=== PATIENT | male | born 1965 | race Caucasian/White ===

== ENCOUNTER → 2019-11-16 15:59 | Outpatient (BNVA) | payer MEDICARE, MEDICAID, SELFPAY | PROVIDERS: Family Provider Nurse Practitioner; PCP Nurse Practitioner; Visit Provider Nurse Practitioner | DX: R50.9 Fever, unspecified (principal); J44.9 Chronic obstructive pulmonary disease, unspecified; E03.9 Hypothyroidism, unspecified; I10 Essential (primary) hypertension; E78.2 Mixed hyperlipidemia; M43.02 Spondylolysis, cervical region; Z87.891 Personal history of nicotine dependence; F31.9 Bipolar disorder, unspecified | CPT/HCPCS: 87400 ==

== ENCOUNTER → 2019-11-17 10:58 | Outpatient (BNVA) | payer MEDICARE, MEDICAID, SELFPAY | PROVIDERS: Family Provider Nurse Practitioner; PCP Nurse Practitioner; Visit Provider Nurse Practitioner | DX: R50.9 Fever, unspecified (principal) | CPT/HCPCS: 87400 ==

== ENCOUNTER → 2020-01-08 10:57 | Outpatient (BNVA) | payer MEDICARE, MEDICAID, SELFPAY | PROVIDERS: Family Provider Nurse Practitioner; PCP Nurse Practitioner; Visit Provider Nurse Practitioner | DX: M17.0 Bilateral primary osteoarthritis of knee (principal); I10 Essential (primary) hypertension; E03.9 Hypothyroidism, unspecified; F31.9 Bipolar disorder, unspecified; E78.2 Mixed hyperlipidemia; M43.02 Spondylolysis, cervical region; J44.9 Chronic obstructive pulmonary disease, unspecified; Z87.891 Personal history of nicotine dependence | CPT/HCPCS: 80053; 80061; 81000; 84439; 84443; 84481 ==

== ENCOUNTER → 2020-04-11 16:07 | Outpatient (BNVA) | payer MEDICARE, MEDICAID, SELFPAY | PROVIDERS: Family Provider Nurse Practitioner; PCP Nurse Practitioner; Visit Provider Nurse Practitioner | DX: R07.9 Chest pain, unspecified (principal); J44.9 Chronic obstructive pulmonary disease, unspecified; F31.9 Bipolar disorder, unspecified; E03.9 Hypothyroidism, unspecified; I10 Essential (primary) hypertension; E78.2 Mixed hyperlipidemia; M43.02 Spondylolysis, cervical region; G47.00 Insomnia, unspecified | CPT/HCPCS: 80053; 80061; 84443; 84484; 85025 ==

== ENCOUNTER → 2020-06-03 11:04 | Outpatient (BNVA) | payer MEDICARE, MEDICAID, SELFPAY | PROVIDERS: Family Provider Nurse Practitioner; PCP Nurse Practitioner; Visit Provider Nurse Practitioner Family | DX: Z11.59 Encounter for screening for other viral diseases (principal) | CPT/HCPCS: 87635 ==

== ENCOUNTER → 2020-10-08 09:38 | Outpatient (BNVA) | payer MEDICARE, MEDICAID, SELFPAY | PROVIDERS: Family Provider Nurse Practitioner; PCP Nurse Practitioner; Visit Provider Nurse Practitioner | DX: J44.9 Chronic obstructive pulmonary disease, unspecified (principal); F31.9 Bipolar disorder, unspecified; E03.9 Hypothyroidism, unspecified; I10 Essential (primary) hypertension; G47.00 Insomnia, unspecified; E78.2 Mixed hyperlipidemia; M43.02 Spondylolysis, cervical region; J30.89 Other allergic rhinitis; Z87.891 Personal history of nicotine dependence | CPT/HCPCS: 80053; 80061; 84443 ==

== ENCOUNTER → 2021-01-06 10:32 | Outpatient (BNVA) | payer MEDICARE, MEDICAID, BC, SELFPAY | PROVIDERS: Family Provider Nurse Practitioner; PCP Nurse Practitioner; Visit Provider Nurse Practitioner | DX: I10 Essential (primary) hypertension (principal); E03.9 Hypothyroidism, unspecified; J44.9 Chronic obstructive pulmonary disease, unspecified; J30.89 Other allergic rhinitis; R07.9 Chest pain, unspecified; F31.9 Bipolar disorder, unspecified; R56.9 Unspecified convulsions; G47.00 Insomnia, unspecified; E78.2 Mixed hyperlipidemia; M43.02 Spondylolysis, cervical region; Z87.891 Personal history of nicotine dependence | CPT/HCPCS: 80053; 81003; 84443; 85025 ==

== ENCOUNTER 2021-04-10 07:53 | Outpatient (CLI) | payer MEDICARE, MEDICAID, SELFPAY ==
[2021-04-10 08:48] VITALS: BMI 33.0
--- NOTE | 2021-04-10 08:48 | ECG_ITS ---
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 The perfusion scan will be documented separately. DATA: Baseline heart rate was 74 beats per minute. Baseline blood pressure was 111/84 millimeters of mercury. Target heart rate was 165. Maximum heart rate achieved was 134. which was 81 % of the predicted target heart rate. Maximum blood pressure was 130/80 millimeters of mercury. The reason for ending the test was completion of the protocol. The patient did not experience any symptoms. ELECTROCARDIOGRAM: BASELINE: Sinus rhythm. Normal axis. Otherwise, no ST-T changes suggestive of ischemia noted. No arrhythmia noted. EXERCISE: After Lexiscan injection, no ST-T changes suggestive of ischemic noted. No arrhythmia noted. 1. EKG not suggestive of ischemia 2. Lexiscan injection unremarkable. 3. Perfusion scan will be documented separately. Electronically Signed On 04-10-2021 21:21:31 CDT by MATEO HYDE [id number]
--- NOTE | 2021-04-10 08:49 | NMCV_ITS ---
NM rupal perf SPECT r/s* [id number] Jewel Mejia Age: 55 Gender: M : 1965 Exam Date: 04/10/2021 09:37 Ordering Phys: Doe Hyde MD ([email or web address]) Technologist: FAISAL Thomas Exam Location: [facility] Indications: SHORTNESS OF BREATH STRESS TEST Please [facility] IMAGE PROTOCOL Rest/Stress 1 Lexiscan Day Radiopharmaceutical Dose (mCi) Administration Site Administered by Rest: Tc-99m 10.7 IV FAISAL Alas Sestamibi Stress:Tc-99m 32.0 IV FAISAL Thomas Sestamidaiana Rest: 10-Apr-2021 60 Discovery 630 Stress: 10-Apr-2021 30 Discovery 630 0.4mg Lexiscan. Images obtained in supine and prone position. SPECT RESULTS Technical Quality: Excellent Raw Data Analysis: Normal Image Corrections: No attenuation or motion correction applied Summed Stress Score: 0 Summed Rest Score: 0 Summed Difference Score: 0 PERFUSION FINDINGS Medium-sized area of patchy decreased tracer uptake noted basal to distal inferior wall suggestive of old myocardial infarction versus scarring. FUNCTIONAL RESULTS (calculated via Gated SPECT) Stress Image LV EF (%): 67 Stress EDV (mL):125 TID: 0.9 Stress ESV (mL):41 Rest Image LV EF (%): 67 FUNCTIONAL FINDINGS: There is normal left ventricular systolic function. IMPRESSIONS Medium-sized area of fixed perfusion defect noted in basal distal inferior wall suggestive of old myocardial infarction versus scarring. No ischemia detected on this study. EKG segment will be documented separately. Doe Hyde MD (Electronically Signed) Final Date: 10 April 2021 18:50 S
[2021-04-10] MEDS: regadenoson 0.4 Mg/5 ml Syringe IVP (11:23)
[2021-04-10 11:41] VITALS: BP 111/73; PULSE 83
== END 2021-04-10 07:54 | disposition home or self-care (01) ==
PROVIDERS: PCP Nurse Practitioner; Visit Provider Internal Medicine Cardiovascular Disease
DX: R06.02 Shortness of breath (principal)
CPT/HCPCS: 78452; 93017; A9500; J2785

== ENCOUNTER → 2021-04-23 11:28 | Outpatient (BNVA) | payer MEDICARE, BC, MEDICAID, SELFPAY | PROVIDERS: PCP Nurse Practitioner; Visit Provider Nurse Practitioner | DX: Z20.822 Contact with and (suspected) exposure to COVID-19 (principal) | CPT/HCPCS: 87635 ==

== ENCOUNTER → 2021-11-20 14:27 | Outpatient (BNVA) | payer MEDICARE, MEDICAID, SELFPAY | PROVIDERS: PCP Nurse Practitioner; Visit Provider Nurse Practitioner | DX: J44.9 Chronic obstructive pulmonary disease, unspecified (principal); J30.89 Other allergic rhinitis; F41.9 Anxiety disorder, unspecified; I10 Essential (primary) hypertension; E03.9 Hypothyroidism, unspecified; R56.9 Unspecified convulsions; E78.2 Mixed hyperlipidemia; M43.02 Spondylolysis, cervical region; G47.00 Insomnia, unspecified; Z12.5 Encounter for screening for malignant neoplasm of prostate | CPT/HCPCS: 80053; 80061; 80183; 81003; 84443; G0103 ==

== ENCOUNTER → 2022-05-05 09:29 | Outpatient (BNVA) | payer MEDICARE, MEDICAID, SELFPAY | PROVIDERS: PCP Nurse Practitioner; Visit Provider Nurse Practitioner | DX: M17.0 Bilateral primary osteoarthritis of knee (principal); E55.9 Vitamin D deficiency, unspecified; E03.9 Hypothyroidism, unspecified; Z87.891 Personal history of nicotine dependence; Z82.49 Family history of ischemic heart disease and other diseases of the circulatory system; J44.9 Chronic obstructive pulmonary disease, unspecified; J30.89 Other allergic rhinitis; F41.9 Anxiety disorder, unspecified; I10 Essential (primary) hypertension; K59.01 Slow transit constipation; R56.9 Unspecified convulsions; E78.2 Mixed hyperlipidemia; M43.02 Spondylolysis, cervical region; G47.00 Insomnia, unspecified | CPT/HCPCS: 80053; 80061; 82306; 82607; 84443; 85025 ==

== ENCOUNTER → 2022-05-06 10:03 | Outpatient (BNVA) | payer MEDICARE, MEDICAID, SELFPAY | PROVIDERS: PCP Nurse Practitioner; Visit Provider Nurse Practitioner | DX: M17.0 Bilateral primary osteoarthritis of knee (principal); J44.9 Chronic obstructive pulmonary disease, unspecified; Z82.49 Family history of ischemic heart disease and other diseases of the circulatory system; Z87.891 Personal history of nicotine dependence | CPT/HCPCS: 71046; 73562 ==

== ENCOUNTER → 2022-05-26 08:24 | Outpatient (BNVA) | payer MEDICARE, MEDICAID, SELFPAY | PROVIDERS: PCP Nurse Practitioner; Visit Provider Surgery | DX: Z12.11 Encounter for screening for malignant neoplasm of colon (principal) | CPT/HCPCS: 99024; 99213 ==

== ENCOUNTER → 2022-10-29 11:27 | Outpatient (BNVA) | payer MEDICARE, MEDICAID, SELFPAY | PROVIDERS: PCP Nurse Practitioner; Visit Provider Nurse Practitioner | DX: I10 Essential (primary) hypertension (principal); Z86.19 Personal history of other infectious and parasitic diseases | CPT/HCPCS: 80053; 80061; 85025; 87522 ==

== ENCOUNTER 2023-03-03 10:09 | Outpatient (CLI) | payer MEDICARE, MEDICAID, SELFPAY ==
--- NOTE | 2023-03-03 10:30 | USCV_ITS ---
Jewel Mejia Age: 57 Gender: M : 1965 Exam Date: 03/03/2023 10:20 Ordering Phys: Zachary Van Technologist: CT [place] [facility] [place]: PVD Risk Factors: Previous Vascular Surgery: RIGHT LEFT BP: 145.0 / 76.00 BP: 150.0/ 80.00 0 0 Waveform Velocity (cm/s) Velocity (cm/s) Waveform Triphasic 105.6 Iliac Prox 164.3 Triphasic Triphasic 112.7 Iliac Mid 130.5 Triphasic Triphasic 116.8 Iliac Distal 89.3 Triphasic Triphasic 72.9 TOE FORMER STITCHDOWNS 66.7 Triphasic Triphasic 65.3 SFA Prox 77.7 Triphasic Triphasic 95.0 SFA Mid 107.4 Triphasic Triphasic SFA Dist Triphasic 78.3 85.7 Triphasic 55.7 POP 54.1 Triphasic Triphasic BUNDLE SHAKER 88.6 Triphasic Triphasic 56.5 DPA 39.2 Triphasic 1.0 CANDIE 1.0 FINDINGS Minimal scattered plaques in the iliac and femoral arteries bilaterally Normal arterial Doppler flow velocities Normal arterial Doppler waveforms Resting CANDIE 1.0 on the right and 1.0 on the left CONCLUSIONS 1. Normal resting ABIs bilaterally suggesting no significant arterial obstruction. 2. Minimal scattered plaques in the iliac and femoral arteries bilaterally Dr Nadya Madsen MD [facility] (Electronically Signed) Final Date: 04 March 2023 08:09 S
== END 2023-03-03 10:10 | disposition home or self-care (01) ==
PROVIDERS: PCP Nurse Practitioner; Visit Provider Nurse Practitioner
DX: I73.9 Peripheral vascular disease, unspecified (principal)
CPT/HCPCS: 93925

== ENCOUNTER 2023-03-11 11:50 | Outpatient (CLI) | payer MEDICARE, MEDICAID, SELFPAY ==
--- NOTE | 2023-03-11 | CT_ITS ---
LDCT LUNG CANCER SCREENING TECHNIQUE: Noncontrast CT of the chest with coronal and sagittal reformatted images. CLINICAL INFORMATION: Z87.891 - Personal history of nicotine dependence COMPARISON: CT chest 2014 DLP: 129 mgy/cm DIvol: 3.[address] scans at [facility] use at least one of these dose optimization techniques: automated exposure control; mA and/or kV adjustment per patient size (includes targeted exams where dose is matched to clinical indication); or iterative reconstruction. FINDINGS: Mild chronic emphysematous changes. A few calcified granulomas. Tiny peribronchial nodule RIGHT upper lobe. Tiny noncalcified nodule RIGHT mid upper lobe. 3 mm noncalcified nodule RIGHT lower lobe. Normal caliber thoracic aorta. A few calcified mediastinal and hilar lymph nodes. No mediastinal or hilar lymphadenopathy. Mild coronary calcification. Tiny esophageal hiatal hernia. No axillary lymphadenopathy. RIGHT adrenal gland is normal. Small LEFT adrenal adenoma measuring 16 mm. Splenic granulomas. Hypertrophic changes thoracic spine. Mild thoracic curve. Postoperative changes lower cervical and upper thoracic spine without IMPRESSION: LUNG-RADS: 2-Benign Appearance or Behavior FOLLOW UP: 12 Month: Continue annual screening with LDCT [facility] CT/CT lung screening 71134 IMPRESSION: Multiple benign-appearing calcified nodules as above.LUNGRADS category 2.
--- NOTE | 2023-03-11 12:00 | CT_ITS ---
WS: [id number] CT HEAD TECHNIQUE: Noncontrast CT of the head obtained from the skullbase to the vertex. CLINICAL INFORMATION: R41.3 - Other amnesia COMPARISON: MRI 2015, 2013, and CT 2013 DLP: 1121.[address] scans at [facility] use at least one of these dose optimization techniques: automated e xposure control; mA and/or kV adjustment per patient size (includes targeted exams where dose is matc hed to clinical indication); or iterative reconstruction. FINDINGS: No evidence of intracranial hemorrhage or mass effect. Ventricular system and basal cisterns are avila nt. Mild small vessel changes. No significant parenchymal volume loss. No extra-axial fluid collectio ns. No evidence of mass or mass effect. Normal austin-white differentiation. Minimal vascular calcifica tion. Paranasal sinuses are well aerated. Mild mucosal thickening in the ethmoid air cells. Mild mucosal th ickening RIGHT mastoid air cells. LEFT mastoid air cells well aerated. CT/CT head wo con* [id number] IMPRESSION: 1. No evidence of intracranial hemorrhage or mass effect. 2. Mild small vessel changes. No significant parenchymal volume loss. 3. Minimal vascular calcification. 4. No acute intracranial findings.
--- NOTE | 2023-03-11 13:30 | CT_ITS ---
WS: [id number] CT CHEST 03/11/2023. HISTORY: 60+ pack year smoking history. Lung screening. Initial examination. TECHNIQUE: Multiple thin section axial images without intravenous contrast enhancement. Coronal and sagittal rec onstructions. FINDINGS: Old reactive mediastinal and hilar lymph nodes most of which are calcified. Multiple calcified nodules in both lungs. Nodules measure from 2 to 4 mm in diameter. No other nodule s or lung mass identified. No other active pulmonary parenchymal or pleural disease is identified. Significant degenerative spondylosis in the mid and lower thoracic cervical spine.
== END 2023-03-11 11:51 | disposition home or self-care (01) ==
PROVIDERS: PCP Nurse Practitioner; Visit Provider Nurse Practitioner
DX: Z12.2 Encounter for screening for malignant neoplasm of respiratory organs (principal); R41.3 Other amnesia; Z87.891 Personal history of nicotine dependence
CPT/HCPCS: 70450; 71271

== ENCOUNTER → 2023-05-12 09:33 | Outpatient (BNVA) | payer MEDICARE, MEDICAID, SELFPAY | PROVIDERS: PCP Nurse Practitioner; Visit Provider Nurse Practitioner | DX: I10 Essential (primary) hypertension (principal); E03.9 Hypothyroidism, unspecified | CPT/HCPCS: 80053; 80061; 84443; 85025 ==

== ENCOUNTER → 2023-06-01 13:22 | Outpatient (BNVA) | payer MEDICARE, MEDICAID, SELFPAY | PROVIDERS: PCP Nurse Practitioner; Visit Provider Internal Medicine Pulmonary Disease | DX: J43.9 Emphysema, unspecified (principal); F17.210 Nicotine dependence, cigarettes, uncomplicated; R91.8 Other nonspecific abnormal finding of lung field; J30.2 Other seasonal allergic rhinitis | CPT/HCPCS: 99204 ==

== ENCOUNTER 2023-06-16 09:40 | Outpatient (CLI) | payer MEDICARE, MEDICAID, SELFPAY | END 2023-06-16 09:41 | disposition home or self-care (01) | LOC: RT 09:41 | PROVIDERS: PCP Nurse Practitioner; Visit Provider Internal Medicine Pulmonary Disease | DX: J43.9 Emphysema, unspecified (principal) | CPT/HCPCS: 94010; 94618; 94729 ==

== ENCOUNTER → 2023-08-04 09:30 | Outpatient (BNVA) | payer MEDICARE, MEDICAID, SELFPAY | PROVIDERS: PCP Nurse Practitioner; Visit Provider Nurse Practitioner | DX: I10 Essential (primary) hypertension (principal); E03.9 Hypothyroidism, unspecified; R06.02 Shortness of breath; J43.9 Emphysema, unspecified | CPT/HCPCS: 80053; 80183; 82785; 84443; 86003 ==

== ENCOUNTER → 2023-09-28 14:02 | Outpatient (BNVA) | payer MEDICARE, MEDICAID, SELFPAY | PROVIDERS: PCP Nurse Practitioner; Visit Provider Internal Medicine Pulmonary Disease | DX: J44.89 Other specified chronic obstructive pulmonary disease (principal); R91.1 Solitary pulmonary nodule; F17.210 Nicotine dependence, cigarettes, uncomplicated | CPT/HCPCS: 99214 ==

== ENCOUNTER → 2023-10-20 10:54 | Outpatient (BNVA) | payer MEDICARE, MEDICAID, SELFPAY | PROVIDERS: PCP Nurse Practitioner; Visit Provider Nurse Practitioner | DX: F31.9 Bipolar disorder, unspecified (principal); R56.9 Unspecified convulsions | CPT/HCPCS: 80053; 80183 ==

== ENCOUNTER → 2024-02-23 11:35 | Outpatient (BNVA) | payer MEDICARE, MEDICAID, SELFPAY | PROVIDERS: PCP Nurse Practitioner; Visit Provider Internal Medicine Cardiovascular Disease | DX: I10 Essential (primary) hypertension (principal); R07.9 Chest pain, unspecified; E78.2 Mixed hyperlipidemia; J44.9 Chronic obstructive pulmonary disease, unspecified; Z72.0 Tobacco use | CPT/HCPCS: 99214 ==

== ENCOUNTER → 2024-03-16 14:53 | Outpatient (BNVA) | payer MEDICARE, MEDICAID, SELFPAY | PROVIDERS: PCP Nurse Practitioner; Visit Provider Nurse Practitioner | DX: I10 Essential (primary) hypertension (principal); E03.9 Hypothyroidism, unspecified | CPT/HCPCS: 80053; 80061; 84443 ==

== ENCOUNTER → 2024-04-06 09:21 | Outpatient (BNVA) | payer MEDICARE, MEDICAID, SELFPAY | PROVIDERS: PCP Nurse Practitioner; Visit Provider Nurse Practitioner Family | DX: M19.042 Primary osteoarthritis, left hand (principal) | CPT/HCPCS: 73130 ==

== ENCOUNTER → 2024-06-13 11:03 | Outpatient (BNVA) | payer MEDICARE, MEDICAID, SELFPAY | PROVIDERS: PCP Nurse Practitioner; Visit Provider Nurse Practitioner | DX: Z12.5 Encounter for screening for malignant neoplasm of prostate (principal); I10 Essential (primary) hypertension; E03.9 Hypothyroidism, unspecified; E55.9 Vitamin D deficiency, unspecified | CPT/HCPCS: 80053; 80061; 82306; 82607; 84443; 85025; G0103 ==

== ENCOUNTER → 2024-10-11 16:18 | Outpatient (BNVA) | payer MEDICARE, MEDICAID, SELFPAY | PROVIDERS: PCP Nurse Practitioner; Visit Provider Nurse Practitioner | DX: F41.9 Anxiety disorder, unspecified (principal); I10 Essential (primary) hypertension; J44.9 Chronic obstructive pulmonary disease, unspecified; E78.2 Mixed hyperlipidemia; J30.89 Other allergic rhinitis; E03.9 Hypothyroidism, unspecified; F31.9 Bipolar disorder, unspecified; G47.00 Insomnia, unspecified; R56.9 Unspecified convulsions; M43.02 Spondylolysis, cervical region; M17.0 Bilateral primary osteoarthritis of knee | CPT/HCPCS: 80053; 84443; 84550 ==

== ENCOUNTER → 2024-11-23 14:58 | Outpatient (BNVA) | payer MEDICARE, MEDICAID, SELFPAY | PROVIDERS: PCP Nurse Practitioner; Visit Provider Internal Medicine Cardiovascular Disease | DX: I10 Essential (primary) hypertension (principal); I25.2 Old myocardial infarction; F17.210 Nicotine dependence, cigarettes, uncomplicated | CPT/HCPCS: 99214 ==

== ENCOUNTER 2024-12-06 07:40 | Outpatient (CLI) | payer MEDICARE, MEDICAID, SELFPAY ==
--- NOTE | 2024-12-06 | ECG_ITS ---
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 Interpretive Statements Lung unchanged pre/post procedure; Intraprocedure shortess of breath nausea vomiting; Symptoms resoled by discharge PROCEDURE: At the baseline, the EKG revealed atrial fibrillation with a controlled ventricular response rate. Incomplete right bundle branch block. The baseline heart was bpm with a blood pressue of mm of Hg Lexiscan was infused over a period of 20 seconds. A total of 0.4 milligrams of Lexiscan was infused. The stress phase was continued for a total of 5 minutes. Heart rate at the end of the stress phase was 150 bpm with a blood pressure mm of 141/97 Hg. The EKG at the peak infusion revealed no significant changes. Sestamibi was injected 20 seconds after the Lexiscan infusion. Heart rate at the end of the recovery phase was 103 bpm with a blood pressure of 155/94 mm of Hg. CONCLUSION: 1. No significant EKG changes with the LexiScan infusion 2. No LexiScan induced chest pain or cardiac arrhythmia 3. Normal blood pressure and heart rate response 4. Sestamibi/sestamibi perfusion scan pending; see separate report. Electronically Signed On 12-08-2024 14:19:03 CDT by Nadya Madsen M.D. [id number]
[2024-12-06 08:23] VITALS: BMI 39.5
--- NOTE | 2024-12-06 08:37 | NMCV_ITS ---
NM rupal perf SPECT r/s* [id number] Jewel Mejia Age: 59 Gender: M : 1965 Exam Date: 12/06/2024 09:10 Ordering Phys: Doe Hyde MD ([email or web address]) Technologist: FAISAL Clark Exam Location: [facility] Indications: cp STRESS TEST Please [facility] IMAGE PROTOCOL Rest/Stress 1 Lexiscan Day Radiopharmaceutical Dose (mCi) Administration Site Administered by Rest: Tc-99m 10.4 IV Lizy Brown AGRICULTURAL EXTENSION SPECIALIST Sestamibi Stress:Tc-99m 32.9 IV Lizy Brown, AGRICULTURAL EXTENSION SPECIALIST Sestamibi Rest: 06-Dec-2024 60 Discovery 630 Stress: 06-Dec-2024 30 Discovery 630 0.4mg Lexiscan. Images obtained in supine and prone position. SPECT RESULTS Technical Quality: Good Raw Data Analysis: Normal Image Corrections: No attenuation or motion correction applied Summed Stress Score: 2 Summed Rest Score: 2 Summed Difference Score: 1 PERFUSION FINDINGS Small area of moderately decreased tracer uptake was noted in the mid inferoseptal region, with the supine imaging. Some reversibility was noted in this area at rest. However with the prone imaging, no significant perfusion defects were noted FUNCTIONAL RESULTS (calculated via Gated SPECT) Stress Image LV EF (%): 56 Stress EDV (mL):114 TID: 0.9 Stress ESV (mL):50 FUNCTIONAL FINDINGS: Segmental wall motion analysis revealed mild hypokinesia of the LV apex IMPRESSIONS 1. Myocardial perfusion imaging revealing a small area moderate degree tracer uptake with some reversibility suggesting ischemic distribution of the right coronary artery. However because of the inconsistency, this could be artifactual 2. Normal LV ejection fraction of 56%. 3. LV wall motion analysis revealing mild hypokinesia of the LV apex 4. Mildly dilated LV cavity, end-systolic volume of 50 mL Possibly no significant coronary ischemia, based on the above findings Dr Nadya Madsen MD [facility] (Electronically Signed) Final Date: 06 December 2024 13:54 S
[2024-12-06] MEDS: regadenoson 0.4 Mg/5 ml Syringe IVP (10:20)
[2024-12-06] MEDS: aminophylline 25 mg/mL SDV 20 mL IVP (10:28)
[2024-12-06 10:40] VITALS: BP 123/84; PULSE 87
== END 2024-12-06 07:41 | disposition home or self-care (01) ==
PROVIDERS: PCP Nurse Practitioner; Visit Provider Internal Medicine Cardiovascular Disease
DX: R07.9 Chest pain, unspecified (principal)
CPT/HCPCS: 36415; 78452; 93017; 96374; A9500; J0280; J2785

== ENCOUNTER → 2024-12-29 08:23 | Outpatient (BNVA) | payer MEDICARE, MEDICAID, SELFPAY | PROVIDERS: PCP Nurse Practitioner; Visit Provider Nurse Practitioner | DX: I10 Essential (primary) hypertension (principal) | CPT/HCPCS: 80053; 80061 ==

== ENCOUNTER 2025-01-15 14:37 | Outpatient (CLI) | payer OTHER, MEDICAID, SELFPAY ==
--- NOTE | 2025-01-15 15:00 | USCV_ITS ---
Jewel Mejia Age: 59 Gender: M : 1965 Exam Date: 01/15/2025 15:17 Ordering Phys: Zachary Van Technologist: Exam Location: [facility] [place] Indication: sob weakness BP: 140 / 80 HR: 81 Rhythm: Sinus Technical Quality: Adequate MEASUREMENTS (Male / Female) Normal Values 2D ECHO LV Diastolic Diameter PLAX 5.3 cm 4.2 - 5.9 / 3.9 - 5.3 cm IVS Diastolic Thickness 1.3 cm 0.6 - 1.0 / 0.6 - 0.9 cm IVS Systolic Thickness 2.0 cm LVPW Diastolic Thickness 1.8 cm 0.6 - 1.0 / 0.6 - 0.9 cm LVPW Systolic Thickness 2.0 cm LVOT Diameter 2.8 cm LV Ejection Fraction 2D Teich 65.6 % LV Ejection Fraction MOD 4C 60.6 % LV Ejection Fraction MOD 2C 63.4 % LV Ejection Fraction 2C AL 64.1 % LA Diameter 5.4 cm RA Systolic Volume 4C AL 61.8 ml RA Systolic Volume 4C MOD 63.1 ml Aorta at Sinotubular Diameter 3.5 cm M-MODE LA Ao Ratio MM 1.5 AV Cusp Separation MM 2.7 cm DOPPLER AV Peak Velocity 233.7 cm/s LVOT Peak Velocity 89.0 cm/s AV Area Cont Eq vti 5.9 cm squared AV Area Cont Eq pk 2.4 cm squared MV Peak Velocity 119.0 cm/s MV Area PHT 3.5 cm squared Mitral E to A Ratio 1.8 TV Peak Velocity 209.0 cm/s TR Peak Velocity 273.0 cm/s TR Peak Gradient 29.8 mmHg TV Peak E Velocity 92.0 cm/s PV Peak Velocity 107.0 cm/s FINDINGS Left Ventricle Normal LV size with ejection fraction of 60%.no regional wall motion abnormalities. Right Ventricle The right ventricle is normal in size and function. Right Atrium Mildly increased right atrial size. Left Atrium Moderately increased left atrial size. Mitral Valve No gross abnormalities noted Aortic Valve Trace to mild aortic valve regurgitation. Tricuspid Valve Mild tricuspid valve regurgitation. Pulmonic Valve Pulmonic valve not well visualized. Pericardium No pericardial effusion. Aorta Normal aortic annulus size. IVC Inferior vena cava not visualized. CONCLUSIONS Normal LV size with ejection fraction of 60%. No regional wall motion abnormalities. Moderately increased left atrial size. Mildly increased right atrial size. Trace to mild aortic valve regurgitation. Mild tricuspid valve regurgitation. There is no pericardial effusion. There are no intracardiac masses. No similar previous studies are available for comparison Dr Nadya Madsen MD [facility] (Electronically Signed) Final Date: 17 Jan 2025 00:34 S
== END 2025-01-15 14:38 | disposition home or self-care (01) ==
PROVIDERS: PCP Nurse Practitioner; Visit Provider Nurse Practitioner
DX: I10 Essential (primary) hypertension (principal); R93.1 Abnormal findings on diagnostic imaging of heart and coronary circulation; I35.1 Nonrheumatic aortic (valve) insufficiency; I07.1 Rheumatic tricuspid insufficiency
CPT/HCPCS: 93306

== ENCOUNTER → 2025-06-28 16:43 | Outpatient (BNVA) | payer OTHER, MEDICAID, SELFPAY | PROVIDERS: PCP Nurse Practitioner; Visit Provider Nurse Practitioner | DX: L03.90 Cellulitis, unspecified (principal) | CPT/HCPCS: 85025 ==

== ENCOUNTER → 2025-08-09 12:18 | Outpatient (BNVA) | payer OTHER, MEDICAID, SELFPAY | PROVIDERS: PCP Nurse Practitioner; Visit Provider Clinical Nurse Specialist Adult Health | DX: L03.012 Cellulitis of left finger (principal); R22.41 Localized swelling, mass and lump, right lower limb; M00.842 Arthritis due to other bacteria, left hand; M86.142 Other acute osteomyelitis, left hand; I10 Essential (primary) hypertension; E78.2 Mixed hyperlipidemia; E03.9 Hypothyroidism, unspecified | CPT/HCPCS: 73130; 80053; 80061; 84443 ==